=== PATIENT | female | born 1990 | race African-American/Black ===

== ENCOUNTER 2025-01-24 06:26 | Outpatient (REF) | payer OTHER, SELFPAY ==
--- NOTE | ~2025-01-24 | US_ITS ---
EXAMINATION: US PELVIS CLINICAL INFORMATION: Pelvic pain. COMPARISON: None available. TECHNIQUE: Ultrasound of the pelvis is performed using both transabdominal and transvaginal transducers along with Doppler. Transvaginal imaging is performed due to inadequate visualization transabdominally. FINDINGS: Examination has been submitted for interpretation on February 03, 2025. Uterus: The uterus is retroflexed and and measures 9 x 4 x 5 cm. Volume: 97 cc. There is cervix is closed and demonstrated normal echotexture. The double wall endometrial thickness is 9 mm. The uterus is smooth in contour and has normal myometrial echogenicity. No visible fibroid. Adnexa: The ovaries aren't identified with the normal color Doppler flow interrogation.. No free fluid in the cul-de-sac. Right ovary measures 2 x 2 x 1 cm. Volume: 3 cc. No solid or cystic lesion. Left ovary measures 3 x 2 x 2 cm. Volume: 6 cc. There is a 1.5 cm dominant follicle. US/US pelvic and transvaginal IMPRESSION: No uterine fibroids. No ovarian torsion. Normal exam. Electronically signed by: Jeff Patrick MD 02/03/2025 08:24 AM EDT
--- OUTSIDE RECORDS SUMMARY | 2025-01-24 06:31 | XMS_ITS | Encounter Summary ---
Author Organization [facility] Address [address] [place] [address] Phone Care Team Providers Care Radiology Practitioner Assistant Name Role Phone Zahira Alvarez MD Primary Care Provider [phone] Encounter Details Date Type Department Care Team (Late Contact Info) Description 03/15/2021 Procedure Pass [address] [place] [address] Social History Tobacco Use Types Packs/Day Years Used Date Smoking Tobacco: Never Assessed Comments Unknown Sex and Gender Information Value Date Recorded Sex Assigned at Not on file Legal Sex Female 3:44 PM EDT Gender Identity Not on file Sexual Orientation Not on file documented as of this encounter Plan of Treatment Upcoming Encounters Date Type Department Care Team ([facility] Contact Info) Description 12/30/2024 Procedure Pass [address] [address] 12/30/2024 Procedure Pass [address] [address] 02/16/2025 11:00 AM EDT Appointment [address] [address] Zahira Alvarez MD [address] [place] [phone] [email or web address] 02/16/2025 11:30 AM EDT Appointment [facility] [address] [address] Zahira Alvarez MD [address] [place] [phone] [email or web address] documented as of this encounter Visit Diagnoses Not on filedocumented in this encounter Care Teams Radiology Practitioner Assistant Relationship Specialty Start Date End Date Zahira Alvarez MD [address] [place] [phone] [email or web address] PCP - General Family Medicine 03/15/21 documented as of this encounter Additional Source Comments The information contained in this document represents components of the legal health record. It is not the complete legal health record.[facility]
--- OUTSIDE RECORDS SUMMARY | 2025-01-24 06:31 | XMS_ITS | Encounter Summary ---
Author Organization [facility] Address [address] [place] [address] Phone Care Team Providers Care Networking Specialist Name Role Phone Zahira Alvarez MD Primary Care Provider [phone] Encounter Details Date Type Department Care Team (Late st Contact Info) Description 02/03/[address] [address] Social History Tobacco Use Types Packs/Day Years Used Date Smoking Tobacco: Never Assessed Education Answer Date Recorded Are you interested in more education? Not on lalo e 09/27/2022 Are you concerned about learning? Not on file 09/27/2022 No 09/27/2022 No 09/27/2022 Digital Access Answer Date Recorded No 10/28/2022 No 10/28/2022 Reliable internet access at home? Not on file 10/28/2022 Device with a working camera? Not on file Comments Unknown Sex and Gender Information Value Date Recorded Sex Assigned at Not on file Legal Sex Female 3:44 PM EDT Gender Identity Not on file Sexual Orientation Not on file documented as of this encounter Plan of Treatment Upcoming Encounters Date Type Department Care Team (Late Contact Info) Description 12/30/[address] [address] 12/30/[address] [address] 02/16/2025 11:00 AM EDT Appointment [address] [address] Zahira Alvarez MD [address] [place] [phone] [email or web address] 02/16/2025 11:30 AM EDT Appointment [address] [address] Zahira Alvarez MD [address] [place] [phone] [email or web address] documented as of this encounter Visit Diagnoses Not on filedocumented in this encounter Care Teams Networking Specialist Relationship Specialty Start Date End Date Zahira Alvarez MD [address] [place] [phone] [email or web address] PCP - General Family Medicine 03/15/21 documented as of this encounter Additional Source Comments The information contained in this document represents components of the legal health record. It is not the complete legal health record.[facility]
--- OUTSIDE RECORDS SUMMARY | 2025-01-24 06:31 | XMS_ITS | Encounter Summary ---
Author Organization [facility] Address [address] [place] [address] Phone Care Team Providers Care Emergency Care Attendant Name Role Phone Pcp, Unknown Primary Care Provider Zahira Abel MD Primary Care Provider Encounter Details Date Type Department Care Team (Late Contact Info) Description 09/20/2020 Procedure Pass [address] [place] [address] Social History Tobacco Use Types Packs/Day Years [...] Team (Late Contact Info) Description 12/30/2024 Procedure Pass [address] [address] 12/30/2024 Procedure Pass [address] [address] 02/16/2025 11:00 AM EDT Appointment [address] [address] Zahira Alvarez MD [address] [place] [address] [email or web address] 02/16/2025 11:30 AM EDT Appointment [facility], Ultrasound - [facility] [address] [place] [address] Zahira Alvarez MD [address] [place] [phone] [email or web address] documented as of this encounter Visit Diagnoses Not on filedocumented in this encounter Care Teams Emergency Care Attendant Relationship Specialty Start Date End Date Pcp, Unknown PCP - General 09/20/20 03/14/21 Zahira Alvarez MD [address] [place] [phone] [email or web address] PCP - General Family Medicine 03/15/21 documented as of this encounter Additional Source Comments The information contained in this document represents components of the legal health record. It is not the complete legal health record.[facility]
--- OUTSIDE RECORDS SUMMARY | 2025-01-24 06:31 | XMS_ITS | Clinical Summary ---
Author Organization [facility] Address [address] [place] [address] Phone Care Team Providers Care Bpm Architect Name Role Phone Zahira Alvarez MD Primary Care Provider [phone] Encounters Date Type Department Care Team Description 12/30/2024 Transcribe Orders Virtual Department [address] [place] [address] Zahira Alvarez MD Unspecified lump in right breast, subareolar (Primary Dx) from Last 3 Months Social History Tobacco Use Types Packs/Day Years [...] on file Sexual Orientation Not on file Plan of Treatment Upcoming Encounters Date Type Department Care Team (Late st Contact Info) Description 12/30/2024 Procedure Pass [facility], Mammography- [address] [address] 12/30/2024 Procedure Pass [address] [address] 02/16/2025 11:00 AM EDT Appointment [address] [address] Zahira Alvarez MD [address] [place] [address] [email or web address] 02/16/2025 11:30 AM EDT Appointment [address] [address] Zahira Alvarez MD [address] [place] [address] [email or web address] Medical Devices Not on file Insurance [employer] OATSystemsCONFL[facility] [address] [facility] Care Teams Bpm Architect Relationship Specialty Start Date End Date Zahira Alvarez MD [address] [place] [phone] [email or web address] PCP - General Family Medicine 03/15/21 Additional Source Comments The information contained in this document represents components of the legal health record. It is not the complete legal health record.[facility]
--- OUTSIDE RECORDS SUMMARY | 2025-01-24 06:31 | XMS_ITS | Encounter Summary ---
Author Organization [facility] Address [address] [place] [address] Phone Care Team Providers Care Emergency Preparedness Manager Name Role Phone Zahira Alvarez MD Primary Care Provider [phone] Encounter Details Date Type Department Care Team (Late Contact Info) Description 10/02/2021 Procedure Pass [address] [place] [address] Social History Tobacco Use Types Packs/Day Years Used Date Smoking Tobacco: Never Assessed Comments Unknown Sex and Gender Information Value Date Recorded Sex Assigned at Not on file Legal Sex Female 3:44 PM EDT Gender Identity Not on file Sexual Orientation Not on file documented as of this encounter Plan of Treatment Upcoming Encounters Date Type Department Care Team ([facility] Contact Info) Description 12/30/2024 Procedure Pass [address] [address] 12/30/2024 Procedure Pass [address] [address] 02/16/2025 11:00 AM EDT Appointment [address] [address] Zahira Alvarez MD [address] [place] [phone] [email or web address] 02/16/2025 11:30 AM EDT Appointment [facility] [address] [address] Zahira Alvarez MD [address] [place] [address] [email or web address] documented as of this encounter Visit Diagnoses Not on filedocumented in this encounter Care Teams Emergency Preparedness Manager Relationship Specialty Start Date End Date Zahira Alvarez MD [address] [place] [phone] [email or web address] PCP - General Family Medicine 03/15/21 documented as of this encounter Additional Source Comments The information contained in this document represents components of the legal health record. It is not the complete legal health record.[facility]
--- OUTSIDE RECORDS SUMMARY | 2025-01-24 06:31 | XMS_ITS | Encounter Summary ---
Author Organization [facility] Address [address] [place] [address] Phone Care Team Providers Care Front Desk Lead Name Role Phone Pcp, Unknown Primary Care Provider Zahira Abel MD Primary Care Provider Encounter Details Date Type Department Care Team (Late Contact Info) Description 09/20/2020 Ancillary Orders Virtual Department [address] [place] [address] Zahira Alvarez MD [address] [place] [phone] [email or web address] Unspecified lump in right breast, subareolar Social History Tobacco Use Types Packs/Day Years [...] (Late Contact Info) Description 12/30/2024 Procedure Pass [address] [address] 12/30/2024 Procedure Pass [address] [address] 02/16/2025 11:00 AM EDT Appointment [address] [address] Zahira Alvarez MD [address] [place] [address] [email or web address] 02/16/2025 11:30 AM EDT Appointment [facility] [address] [place] [address] Zahira Alvarez MD [address] [place] [address] [email or web address] documented as of this encounter Results * BI US BREAST LIMITED (RIGHT) (10/01/2020 2:11 PM EDT) Anatomical Region Laterality Modality Breast Right, Breast Bilateral Right U ltrasound 10/01/2020 2:01 PM EDT Impressions 10/01/2020 2:09 PM EDT 2 cm homogenous solid mass in the 6 clock position of the right breast correlating with the palpable lump. This has a high likelihood of being benign and most likely represents a fibroadenoma. The mass can be followed in 6 months by ultrasound to demonstrate stability. If desired percutaneous biopsy could be considered for confirmation. Discussed with the patient before she left the clinic. BI-RADS CATEGORY 3 - PROBABLY BENIGN Narrative 10/01/2020 2:09 PM EDT HISTORY: Palpable lump lower right breast which the patient believes has been present for over 6 years. She has not noticed a recent change. COMPARISON: None. FINDINGS: Real-time directed scanning performed over the palpable lump in the 6 clock position. There is a superficial hypoechoic homogenous mass in the 6 clock position which is well-circumscribed and wider than tall. Margins are smooth. The mass measures 2.1 cm x 2.0 cm x 1.3 cm. It appears to mildly enhance sound posteriorly. Small amount of blood flow is demonstrated within the mass. No other masses are demonstrated. Procedure Note Linowod Moss MD - 10/01/2020 HISTORY: Palpable lump lower right breast which the patient believes hasbeen present for over 6 years. She has not noticed a recent change. COMPARISON: None. FINDINGS: Real-time directed scanning performed over the palpable lump in the 6clock position. There is a superficial hypoechoic homogenous mass in the 6 clock positionwhich is well-circumscribed and wider than tall. Margins are smooth. Themass measures 2.1 cm x 2.0 cm x 1.3 cm. It appears to mildly enhance soundposteriorly. Small amount of blood flow is demonstrated within the mass. No other masses are demonstrated. IMPRESSION: 2 cm homogenous solid mass in the 6 clock position of the right breastcorrelating with the palpable lump. This has a high likelihood of beingbenign and most likely represents a fibroadenoma. The mass can be followedin 6 months by ultrasound to demonstrate stability. If desiredpercutaneous biopsy could be considered for confirmation. Discussed with the patient before she left the clinic. BI-RADS CATEGORY 3 - PROBABLY BENIGN us Zahira Alvarez MD [facility] [place]AST Final Result documented in this encounter Visit Diagnoses Diagnosis Unspecified lump in right breast, subareolar Unspecified lump in right breast, subareolar documented in this encounter Care Teams Front Desk Lead Relationship Specialty Start Date End Date Pcp, Unknown PCP - General 09/20/20 03/14/21 Zahira Alvarez MD [address] [place] [phone] [email or web address] PCP - General Family Medicine 03/15/21 documented as of this encounter Additional Source Comments The information contained in this document represents components of the legal health record. It is not the complete legal health record.[facility]
== END 2025-01-24 06:27 | disposition home or self-care (01) ==
LOC: HO.UMASIMG 06:26
PROVIDERS: Visit Provider Family Medicine
DX: Z00.00 Encounter for general adult medical examination without abnormal findings (principal); D57.3 Sickle-cell trait; N63.41 Unspecified lump in right breast, subareolar; R10.2 Pelvic and perineal pain; Z84.2 Family history of other diseases of the genitourinary system
CPT/HCPCS: 76830; 76856

== ENCOUNTER → 2025-01-24 15:39 | Outpatient (BNV) | payer OTHER, SELFPAY | PROVIDERS: Visit Provider Radiology Diagnostic Radiology | DX: R10.2 Pelvic and perineal pain (principal) | CPT/HCPCS: 76830; 76856 ==